=== PATIENT | female | born 1985 | race African-American/Black ===

== ENCOUNTER 2022-06-18 14:23 | Emergency (ER) | payer MEDICARE, MEDICAID ==
[2022-06-18 15:24] LABS: Bilirubin Neg (Negative); Blood, Urine 150 (Negative); Clarity Slightly Cloudy (Clear); Glucose, Urine (Dipstick) Normal (Negative); Ketone, Urine Negative (Negative); Leukocyte 100 (Negative); Nitrite Negative (Negative); Protein, Urine (Dipstick) Negative (Neg-Trace); Specific Gravity, Urine 1.015 (1.005-1.030); Urobilinogen Normal mg/dL (Less than 2)
[2022-06-18 15:32] LABS: ALT (SGPT) 11 U/L (8-55); AST (SGOT) 11 U/L (5-34); Alkaline Phosphatase 32 U/L (40-110); BUN (Urea Nitrogen) 12 mg/dL (7.0-18.7); Bilirubin, Total 0.1 mg/dL (0.2-1.2); Calc. Creatinine Clearance 0 mL/min (70-130); Calcium 9.3 mg/dL (7.8-10.44); Carbon Dioxide 22 mmol/L (22-29); Estimated GFR 117; Glucose 83 mg/dL (70-105); Protein, Total 6.9 g/dL (6.0-8.3)
[2022-06-18 15:33] LABS: Albumin 3.8 g/dL (3.5-5.0); Chloride 109 mmol/L (98-107); Potassium 4.5 mmol/L (3.5-5.1); Sodium 138 mmol/L (136-145)
[2022-06-18 15:48] LABS: Anion Gap 12 mmol/L (10-20)
[2022-06-18 15:51] LABS: #Eosinphils 0.4 10x3/uL (0.0-0.5); #Monocytes 0.6 10x3/uL (0.0-1.1); #Neutrophils 5.9 10x3/uL (1.5-8.4); %Basophils 0.3 % (0.0-2.0); %Eosinophils 3.9 % (0.0-6.0); %Lymphocytes 24.9 % (18.0-47.0); %Monocytes 6.2 % (0.0-10.0); %Neutrophils 64.4 % (40.0-75.0); Hemoglobin 10.9 g/dL (12.0-15.5); Mean Corpuscular HGB CONC 32.6 g/dL (32.0-36.0); Mean Corpuscular Hemoglobin 29.8 pg (27.0-33.0); Mean Corpuscular Volume 91.3 fl (81.6-98.3); Platelet Count 293 10x3/uL (150-450); RBC Distribution Width 13.2 % (11.5-14.5); Red Blood Cell (RBC) Count 3.66 10x6/uL (3.90-5.03); White Blood Cell (WBC) Count 9.2 10x3/uL (3.5-10.5)
[2022-06-18 15:56] LABS: Bacteria/HPF 1+ HPF (None Seen); Mucous/LPF 1+ LPF (<2+)
== END 2022-06-18 16:50 | disposition home or self-care (01) ==
LOC: CSHERS 14:23
DX: O20.0 Threatened abortion (principal); O99.891 Other specified diseases and conditions complicating pregnancy; R82.71 Bacteriuria; Z3A.10 10 weeks gestation of pregnancy
CPT/HCPCS: 36415; 76856; 80053; 81003; 81015; 84702; 85025; 86900; 86901

== ENCOUNTER 2022-06-25 08:11 | Emergency (ER) | payer MEDICARE, MEDICAID ==
[2022-06-25] MEDS ORDERED: Ondansetron PF 4 MG/2 ML Vial ONE ×2 (08:44→09:53)
[2022-06-25] MEDS ORDERED: Morphine 4 MG/ML VIAL ONE (08:44)
[2022-06-25] MEDS ORDERED: Fentanyl 100 MCG/2 ML VIAL ONE ×2 (08:59→09:52)
[2022-06-25] MEDS ORDERED: Tranexamic Acid 1,000 MG/10 ML VIAL IVP SCH (09:00)
[2022-06-25 09:06] LABS: #Eosinphils 0.3 10x3/uL (0.0-0.5); #Monocytes 0.4 10x3/uL (0.0-1.1); #Neutrophils 7.5 10x3/uL (1.5-8.4); %Basophils 0.4 % (0.0-2.0); %Eosinophils 2.9 % (0.0-6.0); %Lymphocytes 20.5 % (18.0-47.0); %Monocytes 3.9 % (0.0-10.0); Hemoglobin 9.7 g/dL (12.0-15.5); Mean Corpuscular HGB CONC 32.7 g/dL (32.0-36.0); Mean Corpuscular Hemoglobin 29.9 pg (27.0-33.0); Mean Corpuscular Volume 91.7 fl (81.6-98.3); Mean Platelet Volume 9.9 fl (7.4-10.4); Platelet Count 275 10x3/uL (150-450); RBC Distribution Width 13.3 % (11.5-14.5); Red Blood Cell (RBC) Count 3.24 10x6/uL (3.90-5.03); White Blood Cell (WBC) Count 10.4 10x3/uL (3.5-10.5)
[2022-06-25 09:18] LABS: ALT (SGPT) 10 U/L (8-55); AST (SGOT) 13 U/L (5-34); Albumin 3.3 g/dL (3.5-5.0); Alkaline Phosphatase 31 U/L (40-110); Anion Gap 12 mmol/L (10-20); BUN (Urea Nitrogen) 12 mg/dL (7.0-18.7); Bilirubin, Total 0.3 mg/dL (0.2-1.2); Calc. Creatinine Clearance 0 mL/min (70-130); Calcium 8.3 mg/dL (7.8-10.44); Carbon Dioxide 18 mmol/L (22-29); Chloride 109 mmol/L (98-107); Estimated GFR 118; Globulin 2.7 g/dL (2.4-3.5); Glucose 115 mg/dL (70-105); Potassium 4.2 mmol/L (3.5-5.1); Sodium 135 mmol/L (136-145)
[2022-06-25] MEDS ORDERED: PROPOFOL 20 ML ONE (09:52)
[2022-06-25] MEDS ORDERED: Midazolam HCl 2 mg/2 ml Vial ONE (09:52)
[2022-06-25] MEDS ORDERED: Dexamethasone 4 mg/ml Vial ONE (09:53)
[2022-06-25] MEDS ORDERED: Rocuronium Bromide 10 MG/ML (10ML VIAL) ONE (09:53)
[2022-06-25] MEDS ORDERED: Lidocaine 4% PF 5 ML AMP ONE (09:53)
[2022-06-25] MEDS ORDERED: Succinylcholine 200 MG/10 ml SYRINGE FS ONE (09:53)
[2022-06-25] MEDS ORDERED: cefTRIAXone\\ROCEPHIN 1 GM in Sodium Chloride 0.9% 100 ML IVPB SCH (10:00)
[2022-06-25] MEDS ORDERED: Tranexamic Acid 1,000 MG/10 ML VIAL ONE (10:00)
[2022-06-25] MEDS ORDERED: Carboprost 250 MCG/ML AMP ONE (10:01)
[2022-06-25] MEDS ORDERED: PHENYLEPHRINE-NS 100 MCG/ML 10 ML SYRINGE ONE (10:16)
[2022-06-25] MEDS ORDERED: Misoprostol 200 MCG TAB ONE (10:23)
[2022-06-25] MEDS ORDERED: cefTRIAXone\\ROCEPHIN 1 GM VIAL ONE ×2 (10:23)
[2022-06-25] MEDS ORDERED: Ketorolac Tromethamine 30 MG/ML VIAL ONE (10:46)
[2022-06-25] MEDS ORDERED: Promethazine HCl 25 MG/ML VIAL IM PRN (10:54)
[2022-06-25] MEDS ORDERED: Carboprost 250 MCG/ML AMP IM PRN (10:54)
[2022-06-25] MEDS ORDERED: hydrALAZINE 20 MG/ML VIAL SLOW IVP PRN (10:54)
[2022-06-25] MEDS ORDERED: Misoprostol 200 MCG TAB PR PRN (10:54)
[2022-06-25] MEDS ORDERED: Ondansetron PF 4 MG/2 ML Vial IVP PRN (10:54)
[2022-06-25] MEDS ORDERED: Methylergonovine 0.2 MG/ML VIAL IM PRN (10:54)
[2022-06-25] MEDS ORDERED: Lactated Ringer's 1,000 ML IV SCH (11:00)
[2022-06-25] MEDS ORDERED: Azithromycin 250 MG TAB PO SCH (11:00)
[2022-06-25] MEDS ORDERED: Ibuprofen 800 MG TAB PO PRN (11:41)
== END 2022-06-25 10:00 | disposition admitted as inpatient to this hospital (09) ==
LOC: CSHERS 08:11
DX: O03.4 Incomplete spontaneous abortion without complication (principal); I95.9 Hypotension, unspecified; I10 Essential (primary) hypertension
CPT/HCPCS: 36430; 80053; 84702; 85025; 86850; 86900; 86901; 86920; 96365; 96375; 99285; P9016; 36415; 88300; 88305; J0696; J1100; J1885; J2250; J2270; J2405; J2704; J3010; J3490